=== PATIENT | female | born 1950 | race African-American/Black ===

== ENCOUNTER 2017-01-01 04:04 | Inpatient (IN) | payer MEDICARE ==
[~2017-01-01] VITALS: Ht 170.2 cm; Wt 79.6 kg
[2017-01-01] VITALS (12 sets, daily range): BP systolic 108–179; BP diastolic 56–93; PULSE 61–106; RESP 18–41; TEMP 98.3–99.2; O2SAT 96–100
[2017-01-01] MEDS ORDERED: RESP: ALBUTEROL 2.5 MG/IPRATROPIUM 0.5 MG NEB (SCH) ONE (04:12)
[2017-01-01 04:30] LABS: BLOOD GAS BASE EXCESS -0.8 mmol/L (-2-2); BLOOD GAS CARBOXYHEMOGLOBIN 2.8 % (0-4); BLOOD GAS HCO3 23 mmol/L (22-26); BLOOD GAS METHEMOGLOBIN 0.6 % (0-2); BLOOD GAS O2 HGB SATURATION 91 % (90-100); BLOOD GAS OXYGEN CONTENT 16.4 Vol % (12.0-20.0); BLOOD GAS PCO2 38 mmHg (38-42); BLOOD GAS PO2 73 mmHG (61-120); BLOOD GAS TOTAL HGB 12.8 G/DL (12.0-16.0); CRITICAL VALUE NO; TEMP CORR TO 98.6
[2017-01-01] MEDS ORDERED: SODIUM CHLORIDE 0.9% FLUSH 10 ML FLUSH IVF PRN (04:30)
[2017-01-01] MEDS ORDERED: RESP: ALBUTEROL 2.5 MG/IPRATROPIUM 0.5 MG NEB (SCH) INH ONE (04:30)
[2017-01-01 04:31] LABS: DRAW SITE LT RADIAL; FIO2 100 %; NUMBER OF ARTERIAL PUNCTURES 2; OXYGEN DEVICE NPPV; STAT YES; ULNAR PULSE PRESENT; VENT SETTINGS IPAP14/EPAP 5
[2017-01-01 04:37] LABS: AUTOMATED NEUTROPHIL # 17.2 TH/MM3 (1.8-7.7); BASOPHIL # 0.1 TH/MM3 (0-0.2); BASOPHIL % 0.3 % (0.0-2.0); EOSINOPHIL # 0.1 TH/MM3 (0-0.4); EOSINOPHIL % 0.3 % (0.0-4.0); HEMATOCRIT 39.5 % (35.0-46.0); HEMO FLAGS DIFF FINAL; LYMPHOCYTE # 1.4 TH/MM3 (1.0-4.8); MEAN CELL VOLUME 91.4 FL (80.0-100.0); MEAN CORPUSCULAR HEMOGLOBIN 29.6 PG (27.0-34.0); MEAN CORPUSCULAR HGB CONC 32.3 % (32.0-36.0); MONO % 7.2 % (0.0-8.0); NEUT % 85.2 % (16.0-70.0); PLATELET COUNT 123 TH/MM3 (150-450); RED BLOOD COUNT 4.33 MIL/MM3 (4.00-5.30); RED CELL DISTRIBUTION WIDTH 16.4 % (11.6-17.2); WHITE BLOOD COUNT 20.2 TH/MM3 (4.0-11.0)
[2017-01-01] MEDS ORDERED: FURO1TAB60 PO (04:49)
[2017-01-01] MEDS ORDERED: APIX5TAB PO ×2 (04:49→06:59)
[2017-01-01] MEDS ORDERED: NEUR600T PO (04:49)
[2017-01-01] MEDS ORDERED: TRAZ100T6 PO (04:49)
[2017-01-01] MEDS ORDERED: HYDR-3801 PO (04:49)
[2017-01-01] MEDS ORDERED: ROSU10 PO (04:49)
[2017-01-01] MEDS ORDERED: PROT40TA PO (04:49)
[2017-01-01] MEDS ORDERED: DILT60TA33 PO (04:49)
[2017-01-01] MEDS ORDERED: METO-488 PO (04:49)
[2017-01-01 04:50] LABS: APTT (PATIENT) 26.4 SEC (24.3-30.1); PROTHROMBIN TIME - PATIENT 10.7 SEC (9.8-11.6)
[2017-01-01] MEDS ORDERED: NITR1SUB3 SL (04:55)
[2017-01-01] MEDS ORDERED: ZANA4CAP PO (04:55)
[2017-01-01] MEDS ORDERED: POTA-163 PO (04:55)
[2017-01-01 04:57] LABS: CREATINE KINASE 116 U/L (26-192)
--- NOTE | 2017-01-01 04:58 | RADRPT ---
EXAM DATE/TIME: 01/01/2017 04:25 [facility] COMPARISON: No previous studies available for comparison. INDICATIONS : Short of breath. MEDICAL HISTORY : Congestive heart failure. Chronic obstructive pulmonary disease. Hypertension. SURGICAL HISTORY : CABG. Pacemaker. ENCOUNTER: Initial ACUITY: 1 day PAIN SCORE: 0/10 LOCATION: chest FINDINGS: A single view of the chest demonstrates the lungs to be symmetrically aerated with bibasilar airspace disease. Heart size is normal. Findings of prior aortic and mitral valve prostheses. Intact median s ternotomy wires. Left subclavian bipolar pacer is radiographically intact. Right subclavian Infuse-a- Port catheter with the tip projecting over the central venous system the central venous system. CONCLUSION: 1. Bibasilar airspace disease. No associated effusions. 2. Valvular prostheses. 3. Right subclavian Uibrue-p-Qgyg catheter with the tip projecting over the central venous system. Le ft subclavian bipolar pacer is radiographically intact. Jose Ruff MD on January 01, 2017 at 4:52 Board Certified Radiologist. This report was verified electronically.
[2017-01-01 04:59] LABS: ANION GAP 7 MEQ/L (5-15); BICARBONATE 26.6 MEQ/L (21.0-32.0); BLOOD UREA NITROGEN 12 MG/DL (7-18); CHLORIDE 107 MEQ/L (98-107); GLOMERULAR FILTRATION RATE 50 ML/MIN (>89); POTASSIUM 3.8 MEQ/L (3.5-5.1); SODIUM (NA) 141 MEQ/L (136-145)
[2017-01-01 05:09] LABS: CKMB 0.6 NG/ML (0.5-3.6)
[2017-01-01] MEDS ORDERED: VANCOMYCIN INJ 1,000 MG in SODIUM CHLOR 0.9% 250 ML INJ 250 ML IV ONE (05:45)
[2017-01-01] MEDS ORDERED: LEVOFLOXACIN 750 MG PREMIX INJ 150 ML IV ONE (05:45)
[2017-01-01] MEDS ORDERED: CEFEPIME INJ 1,000 MG in SODIUM CHLORIDE 0.9% INJ 100 ML IV ONE (05:45)
--- NOTE | 2017-01-01 06:03 | PD ---
HPI Chief Complaint: Respiratory Distress Time Seen by Provider: 04:16 Travel History International Travel<30 days: No Contact w/Intl Traveler<30days: No Traveled to known affect area: No History of Present Illness HPI Patient is a 66 year old female who comes in complaining of shortness of breath. She has history of COPD and CHF. She woke up from sleep, suddenly short of breath. EMS states when they arrived, her oxygen saturation was in the 50s. She was placed on CPAP with improvement of her oxygen saturation to 93 %. She says that she has been feeling short of breath for the past day and has been using her inhalers at home without much relief. She has been coughing, but has not had any fever. She denies any chest pain. She says she receives IgG infusions for an immune disorder. PFSH Past Medical History Autoimmune Disease: Yes Blood Disorders: Yes (HEPERIN INDUCED THROMBOCYTOPENIA) Cardiovascular Problems: Yes (HTN, CHF) Congestive Heart Failure: Yes COPD: Yes Fibromyalgia: Yes Hypertension: Yes Immune Disorder: Yes Neurologic: Yes (PERIPHERIAL NERVE DAMAGE) Respiratory: Yes (COPD) Myocardial Infarction: Yes (X3) Tetanus Vaccination: < 5 Years Influenza Vaccination: No ?: Not Menopausal: Yes : 5 Para: 1 Miscarriage: 4 Tubal Ligation: Yes Past Surgical History Oral Surgery: Yes (ADENOIDS) Tonsillectomy: Yes Social History Alcohol Use: No Tobacco Use: Yes (5 A DAY) Substance Use: No Allergies-Medications (Allergen,Severity, Reaction): Coded Allergies: Codeine (Verified Allergy, Unknown, 01/01/17) Heparin (Verified Allergy, Unknown, 01/01/17) Morphine (Verified Allergy, Unknown, 01/01/17) Penicillin (Verified Allergy, Unknown, 01/01/17) Reported Meds & Prescriptions Reported Meds & Active Scripts Active Reported Eliquis (Apixaban) 5 Mg Tab 5 Mg PO BID Singulair (Montelukast Sodium) 10 Mg Tab 10 Mg PO HS Nitroglycerin SL (Nitroglycerin) 0.4 Mg Subl 0.4 Mg SL DIRECTED PRN ONE TABLET UNDER THE TONGUE NEEDED FOR CHEST PAIN, MAY REPEAT EVERY FIVE MINUTES FOR A TOTAL OF 3 DOSES OR CALL 911 IF NO RELIEF Potassium Chloride ER (Potassium Chloride) 20 Meq Tab 20 Meq PO DAILY Zanaflex (Tizanidine HCl) 4 Mg Cap 4 Mg PO TID Neurontin (Gabapentin) 600 Mg Tab 600 Mg PO TID Crestor (Rosuvastatin Calcium) 10 Mg Tab 10 Mg PO DAILY Trazodone (Trazodone HCl) 100 Mg Tablet 100 Mg PO HS Eliquis (Apixaban) 5 Mg Tab 5 Mg PO BID Protonix (Pantoprazole Sodium) 40 Mg Tab 40 Mg PO BID Metoprolol Succinate/HCTZ 50-12.5 ER 1 Tab Tab 1 Tab PO DAILY Hydralazine (Hydralazine HCl) 100 Mg Tab 100 Mg PO BID Take with meals Cardizem (Diltiazem HCl) 60 Mg Tab 60 Mg PO TID Lasix (Furosemide) 40 Mg Tab 40 Mg PO BID Review of Systems Except as stated in HPI: all other systems reviewed are Neg General / Constitutional: No: Fever, Chills HENT: No: Headaches, Lightheadedness Cardiovascular: No: Chest Pain or Discomfort Respiratory: Positive: Shortness of Breath Gastrointestinal: No: Nausea, Vomiting Musculoskeletal: No: Edema Skin: No Rash, No Change in Pigmentation Neurologic: No: Weakness, Dizziness Physical Exam Narrative GENERAL: Awake and alert, in moderate respiratory distress. SKIN: Focused skin assessment warm/dry. HEAD: Atraumatic. Normocephalic. EYES: Pupils equal and round. No scleral icterus. ENT: Mucous membranes pink and moist. NECK: Trachea midline. No JVD. CARDIOVASCULAR: Regular rate and rhythm. No murmur appreciated. RESPIRATORY: Wheezing, worse on the left. Tachypnea. Breath sounds equal bilaterally. GASTROINTESTINAL: Abdomen soft, non-tender, nondistended. MUSCULOSKELETAL: No obvious deformities. No clubbing. No cyanosis. No edema. NEUROLOGICAL: Awake and alert. No obvious cranial nerve deficits. Motor grossly within normal limits. Normal speech. PSYCHIATRIC: Appropriate mood and affect; insight and judgment normal. Data Data Last Documented VS Vital Signs Date Time Temp Pulse Resp B/P Pulse Ox O2 Delivery O2 Flow Rate FiO2 01/01/17 05:31 69 18 113/58 96 BiPAP 50 01/01/17 04:07 98.8 Orders Albuterol-Ipratropium Neb (Duoneb Neb) (01/01/17 04:12) Complete Blood Count With Diff (01/01/17 04:16) Basic Metabolic Panel (Bmp) (01/01/17 04:16) B-Type Natriuretic Peptide (01/01/17 04:16) Act Partial Throm Time (Ptt) (01/01/17 04:16) Prothrombin Time / Inr (Pt) (01/01/17 04:16) Ckmb (Isoenzyme) Profile (01/01/17 04:16) Troponin I (01/01/17 04:16) Arterial Blood Gas (Abg) (01/01/17 04:16) Iv Access Insert/Monitor (01/01/17 04:16) Ecg Monitoring (01/01/17 04:16) Oximetry (01/01/17 04:16) Oxygen Administration (01/01/17 04:16) Chest, Single Ap (01/01/17 04:16) Sodium Chloride 0.9% Flush (Ns Flush) (01/01/17 04:30) Albuterol-Ipratropium Neb (Duoneb Neb) (01/01/17 04:30) Resp Bipap / Cpap Non Invas Vt (01/01/17 04:16) CKMB (01/01/17 04:21) CKMB% (01/01/17 04:21) Cefepime Inj (Maxipime Inj) (01/01/17 05:45) Vancomycin Inj (Vancomycin Inj) (01/01/17 05:45) Levofloxacin 750 Mg Premix Inj (Levaquin (01/01/17 05:45) Admit Order (Ed Use Only) (01/01/17 ) Labs Laboratory Tests Test 01/01/17 01/01/17 04:15 04:21 Blood Gas Puncture Site LT RADIAL Blood Gas Patient Temperature 98.6 Blood Gas HCO3 23 mmol/L Blood Gas Base Excess -0.8 mmol/L Blood Gas Oxygen Saturation 91 % Arterial Blood pH 7.41 Arterial Blood Partial 38 mmHg Pressure CO2 Arterial Blood Partial 73 mmHG Pressure O2 Arterial Blood Oxygen Content 16.4 Vol % Arterial Blood 2.8 % Carboxyhemoglobin Arterial Blood Methemoglobin 0.6 % Blood Gas Hemoglobin 12.8 G/DL Oxygen Delivery Device NPPV Blood Gas Ventilator Setting IPAP14/EPAP 5 Blood Gas Inspired Oxygen 100 % White Blood Count 20.2 TH/MM3 Red Blood Count 4.33 MIL/MM3 Hemoglobin 12.8 GM/DL Hematocrit 39.5 % Mean Corpuscular Volume 91.4 FL Mean Corpuscular Hemoglobin 29.6 PG Mean Corpuscular Hemoglobin 32.3 % Concent Red Cell Distribution Width 16.4 % Platelet Count 123 TH/MM3 Mean Platelet Volume 9.4 FL Neutrophils (%) (Auto) 85.2 % Lymphocytes (%) (Auto) 7.0 % Monocytes (%) (Auto) 7.2 % Eosinophils (%) (Auto) 0.3 % Basophils (%) (Auto) 0.3 % Neutrophils # (Auto) 17.2 TH/MM3 Lymphocytes # (Auto) 1.4 TH/MM3 Monocytes # (Auto) 1.4 TH/MM3 Eosinophils # (Auto) 0.1 TH/MM3 Basophils # (Auto) 0.1 TH/MM3 CBC Comment DIFF FINAL Differential Comment Prothrombin Time 10.7 SEC Prothromb Time International 1.0 RATIO Ratio Activated Partial 26.4 SEC Thromboplast Time Sodium Level 141 MEQ/L Potassium Level 3.8 MEQ/L Chloride Level 107 MEQ/L Carbon Dioxide Level 26.6 MEQ/L Anion Gap 7 MEQ/L Blood Urea Nitrogen 12 MG/DL Creatinine 1.10 MG/DL Estimat Glomerular Filtration 50 ML/MIN Rate Random Glucose 137 MG/DL Calcium Level 8.8 MG/DL Total Creatine Kinase 116 U/L Creatine Kinase MB 0.6 NG/ML Troponin I 0.04 NG/ML B-Type Natriuretic Peptide 235 PG/ML [facility] Medical Decision Making Medical Screen Exam Complete: Yes Emergency Medical Condition: Yes Interpretation(s) ECG shows sinus tachycardia at 103, no ST elevation or depression, normal intervals. Differential Diagnosis COPD exacerbation versus CHF exacerbation versus pneumonia versus ACS Narrative Course Patient is a 66-year-old female comes in short of breath. Exam shows patient is tachypnea, in moderate respiratory distress. She is continued on BiPAP. Placed on laborer aquatic life. Patient given 1 DuoNeb. She seems to be improving on BiPAP and with the DuoNeb. Labs sent show an elevated white blood cell count of 20. Troponin is 0.04. Chest x-ray is concerning for bibasilar airspace disease. She is covered with antibiotics. Patient is resting comfortably on BiPAP. She'll be admitted for further management. Diagnosis Primary Impression: COPD (chronic obstructive pulmonary disease) Qualified Code: J44.1 - Chronic obstructive pulmonary disease with acute exacerbation Additional Impressions: Pneumonia Qualified Code: J18.9 - Pneumonia of both lower lobes due to infectious organism Hypoxia Admitting Information Admitting Physician Requests: Admit Condition: Stable Geetha Freeman MD Jan 01, 2017 06:03
[2017-01-01] MEDS ORDERED: NALOXONE HCL 0.4 MG/ML AMP IV PRN (06:15)
[2017-01-01] MEDS ORDERED: SODIUM CHLORIDE 0.9% FLUSH 10 ML FLUSH IV FLUSH PRN (06:15)
--- NOTE | 2017-01-01 06:37 | HHI.HP ---
[facility]Staff Admission Diagnosis COPD, pneumonia, hypoxia Diagnoses: Chief Complaint: Shortness of breath Travel History International Travel<30 Days: No Contact w/Intl Traveler <30 Da: No Traveled to Known Affected Are: No History of Present Illness History from patient, ER physician communication, and review of medical records. Patient reported that she came to the hospital because she just was not able to breathe. She stated her shortness of breath started yesterday slowly but today she just was not able to keep it under control.. She stated that she has been having cough for the past few days. Yellow sputum. Reports of subjective fevers and cold sweats. He also reports of nausea before she came here. However no vomiting. Denies any chest pains or tightness associated with this. Denies any blood in her stool or in her urine. Denies diarrhea. Denies any burning urination or pain on urination. Patient also reports off right lower extremity swelling and pain. She came to [facility] from [place] a few days ago by car. It was 10 hours, right. Reports she did take breaks in between though. She is on Eliquis at home. According to ER communication, patient was so severely short of breath upon initial arrival. EMS had placed her on CPAP on route. They also had given her Lasix 80 mg IV. Patient has history of cardiomyopathy, COPD on home oxygen, sleep apnea. 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 Was told she had multiple secretions Past Surgical History mediport placement ppm aortic valve replacement mitral valve repair coronary angiograms right rotator cuff sx tubal ligation tonsillectomy adenoidectomy Reported Medications reports went through meds with nurse Allergies: Coded Allergies: Codeine (Verified Allergy, Unknown, 01/01/17) Heparin (Verified Allergy, Unknown, 01/01/17) Morphine (Verified Allergy, Unknown, 01/01/17) Penicillin (Verified Allergy, Unknown, 01/01/17) Family History brother 'dropped ' with heart attack at 55yo another brother last december with cirrhosis of liver complications both mom and dad had multiple cardia issues pt herself had first heart attack at age 37 Social History still smokes about 5 cigarettes a day denies etoh abuse or drug abuse Physical Exam Vital Signs Vital Signs Date Time Temp Pulse Resp B/P Pulse Ox O2 Delivery O2 Flow Rate FiO2 01/01/17 05:31 69 18 113/58 96 BiPAP 50 01/01/17 04:50 96 BiPAP 50 01/01/17 04:44 98 50 01/01/17 04:26 39 98 CPAP 100 01/01/17 04:24 98 BiPAP 100 01/01/17 04:07 98.8 106 41 179/93 99 01/01/17 04:05 96 100 01/01/17 04:05 96 100 Physical Exam GENERAL: This is a well-nourished, well-developed patient, in no apparent distress. SKIN: No rashes, ecchymoses or lesions. Cool and dry. HEAD: Atraumatic. Normocephalic. No temporal or scalp tenderness. EYES: No scleral icterus. No injection or drainage. ENT: Nose without bleeding, purulent drainage or septal hematoma. Airway patent. NECK: Trachea midline. No JVD CARDIOVASCULAR: Regular rate and rhythm without gallops, or rubs. Systolic murmur at aortic area and precordium throughout. RESPIRATORY: Bilateral basilar crepitations. Limited exam partly due to BiPAP sounds. GASTROINTESTINAL: Abdomen soft, non-tender, nondistended. No hepato-splenomegaly , or palpable masses. No guarding. MUSCULOSKELETAL: Extremities without clubbing, cyanosis, or edema. Right lower extremity tenderness of the calf. Cannot appreciate asymmetry although patient complains of more swelling on the right lower extremity. NEUROLOGICAL: Awake and alert. Motor and sensory grossly within normal limits. Normal speech. Laboratory Laboratory Tests Test 01/01/17 01/01/17 04:15 04:21 Blood Gas Puncture Site LT RADIAL Blood Gas Patient Temperature 98.6 Blood Gas HCO3 23 Blood Gas Base Excess -0.8 Blood Gas Oxygen Saturation 91 Arterial Blood pH 7.41 Arterial Blood Partial 38 Pressure CO2 Arterial Blood Partial 73 Pressure O2 Arterial Blood Oxygen Content 16.4 Arterial Blood 2.8 Carboxyhemoglobin Arterial Blood Methemoglobin 0.6 Blood Gas Hemoglobin 12.8 Oxygen Delivery Device NPPV Blood Gas Ventilator Setting IPAP14/EPAP 5 Blood Gas Inspired Oxygen 100 White Blood Count 20.2 Red Blood Count 4.33 Hemoglobin 12.8 Hematocrit 39.5 Mean Corpuscular Volume 91.4 Mean Corpuscular Hemoglobin 29.6 Mean Corpuscular Hemoglobin 32.3 Concent Red Cell Distribution Width 16.4 Platelet Count 123 Mean Platelet Volume 9.4 Neutrophils (%) (Auto) 85.2 Lymphocytes (%) (Auto) 7.0 Monocytes (%) (Auto) 7.2 Eosinophils (%) (Auto) 0.3 Basophils (%) (Auto) 0.3 Neutrophils # (Auto) 17.2 Lymphocytes # (Auto) 1.4 Monocytes # (Auto) 1.4 Eosinophils # (Auto) 0.1 Basophils # (Auto) 0.1 CBC Comment DIFF FINAL Differential Comment Prothrombin Time 10.7 Prothromb Time International 1.0 Ratio Activated Partial 26.4 Thromboplast Time Sodium Level 141 Potassium Level 3.8 Chloride Level 107 Carbon Dioxide Level 26.6 Anion Gap 7 Blood Urea Nitrogen 12 Creatinine 1.10 Estimat Glomerular Filtration 50 Rate Random Glucose 137 Calcium Level 8.8 Total Creatine Kinase 116 Creatine Kinase MB 0.6 Troponin I 0.04 B-Type Natriuretic Peptide 235 Result Diagram: 01/01/17 0421 01/01/17 042 Imaging Last 48 hours Impressions Chest X-Ray 01/01/17 0416 Signed Impressions: Service Date/Time: Sunday, January 01, 2017 04:25 - CONCLUSION: 1. Bibasilar airspace disease. No associated effusions. 2. Valvular prostheses. 3. Right subclavian Evhkml-a-Hjyi catheter with the tip projecting over the central venous system. Left subclavian bipolar pacer is radiographically intact. Jose Ruff MD Assessment and Plan Assessment and Plan Impression: Pneumonia Acute respiratory failurehypoxemicmultifactorial. Pneumonia, suspect CHF exacerbation as patient improves with Lasix 80 mg IV which was given on the field. 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 Was told she had multiple secretions Plan: Continue BiPAP for now. Patient was given vancomycin, cefepime, levofloxacin in ER. For now, I would continue cefepime 2 g IV every 12 hours. Continue Lasix at 40 mg IV every 12 hours. Patient received 80 mg Lasix IV on the field per report. Will monitor input/ output. Patient reports of improvement after diuresis. Will obtain ultrasound of the lower extremities to rule out DVT given that patient has recent 10 hour car ride from [place] to here. Continue home medications. DVT prophylaxison Eliquis GI prophyalxis on pantoprazole Discussed Condition With patient, ER MD, nursing staff Physician Certification 2 Midnight Certification Type: Admission for Inpatient Services Order for Inpatient Services The services are ordered in accordance with Medicare regulations or non- Medicare payer requirements, as applicable. In the case of services not specified as inpatient-only, they are appropriately provided as inpatient services in accordance with the 2-midnight benchmark. Estimated LOS (days): 2 days is the estimated time the patient will need to remain in the hospital, assuming treatment plan goals are met and no additional complications. Post-Hospital Plan: Home Balwinder Diamond MD Jan 01, 2017 06:37
[2017-01-01] MEDS ORDERED: MONT10TA2 PO (06:59)
[2017-01-01] MEDS: traZODone HCL 100 MG TAB PO SCH ×2 (07:00→20:36)
[2017-01-01] MEDS ORDERED: RESP: ALBUTEROL 2.5 MG/IPRATROPIUM 0.5 MG NEB (PRN) NEB (07:15)
[2017-01-01] MEDS: RESP: ALBUTEROL 2.5 MG/IPRATROPIUM 0.5 MG NEB (SCH) NEB ×3 (08:56→20:24)
--- NOTE | 2017-01-01 08:59 | RADRPT ---
EXAM DATE/TIME: 01/01/2017 07:29 [facility] COMPARISON: No previous studies available for comparison. INDICATIONS : Shortness of breath. MEDICAL HISTORY : Myocardial infarction. Hypertension. Congestive heart failure. COPD. Fibromyalgia. SURGICAL HISTORY : Pacemaker.Tonsillectomy. Tubal ligation.Left elbow surgery. ENCOUNTER: Initial ACUITY: 2 day PAIN SCORE: 0/10 LOCATION: Bilateral leg. TECHNIQUE: Venous ultrasound of the left and right leg was performed from the inguinal ligament to the proximal calf. Real-time, color Doppler and spectral tracing, compression and augmentation techniques were us ed. FINDINGS: RIGHT LEG: There is normal compressibility of the deep venous system from the inguinal region to the proximal ca lf. No echogenic clot is seen in the lumen of the common femoral, femoral, popliteal, and posterior tibial veins. There is a normal response of the venous system to proximal and distal augmentation an d respiration. LEFT LEG: There is normal compressibility of the deep venous system from the inguinal region to the proximal ca lf. No echogenic clot is seen in the lumen of the common femoral, femoral, popliteal, and posterior tibial veins. There is a normal response of the venous system to proximal and distal augmentation an d respiration. CONCLUSION: No evidence of DVT. Eriberto Mendiola MD on January 01, 2017 at 8:57 Board Certified Radiologist. This report was verified electronically.
[2017-01-01] MEDS ORDERED: HCTZ PO SCH (09:00)
[2017-01-01] MEDS ORDERED: METOPROLOL SUCCINATE PO SCH (09:00)
[2017-01-01] MEDS: POTASSIUM CHLORIDE 20 MEQ CONTROLLED RELEASE TAB PO SCH (09:00)
[2017-01-01] MEDS: ATORVASTATIN 20 MG TAB PO SCH (09:00)
[2017-01-01] MEDS ORDERED: CHLORHEXIDINE GLUCONATE 2 % 1 PACK (2 CLOTHS)(extra cloths) TOPICAL PRN (10:30)
[2017-01-01] MEDS ORDERED: ACETAMINOPHEN 325 MG TAB PO PRN (11:00)
[2017-01-01] MEDS: GABAPENTIN 300 MG CAP PO SCH ×3 (11:44→18:34)
[2017-01-01] MEDS: hydrALAZINE HCL 100 MG TAB PO SCH ×2 (11:44→20:28)
[2017-01-01] MEDS: HYDROCHLOROTHIAZIDE 12.5 MG CAP PO SCH (11:44)
[2017-01-01] MEDS: SODIUM CHLORIDE 0.9% FLUSH 10 ML FLUSH IV FLUSH SCH ×2 (11:45→20:28)
[2017-01-01] MEDS: METOPROLOL SUCCINATE 50 MG EXTENDED RELEASE TAB PO SCH (11:46)
[2017-01-01] MEDS: PANTOPRAZOLE SOD 40 MG DELAYED RELEASE TAB PO SCH ×2 (11:46→20:28)
[2017-01-01] MEDS: FUROSEMIDE 40 MG/4 ML VIAL IV PUSH SCH ×2 (11:46→18:37)
[2017-01-01] MEDS: DILTIAZEM HCL 60 MG TAB PO SCH ×3 (11:46→18:34)
[2017-01-01] MEDS: APIXABAN 5 MG TABLET PO SCH ×2 (11:48→20:28)
--- NOTE | 2017-01-01 13:23 | EKG ---
Date Performed: 01/01/2017 Time Performed: 04:11:55 PTAGE: 66 years EKG: SINUS TACHYCARDIA NONSPECIFIC ST & T-WAVE ABNORMALITY ABNORMAL ECG NO PREVIOUS TRACING DOCTOR: Tien Hook Interpretating Date/Time 01/01/2017 13:22:10
--- NOTE | 2017-01-01 13:36 | HHI.PR ---
Addendum to Inpatient Note Addendum Reason: Additional Documentation Additional Information 01/01/17 -Patient seen and examined; she currently denies any chest pain or shortness of breath. She was treated with Tylenol 1 for headache with significant improvement of symptom. Continue current treatment. Domenic Wise MD Jan 01, 2017 13:36
[2017-01-01] MEDS: CEFEPIME INJ 2,000 MG in SODIUM CHLORIDE 0.9% INJ 100 ML IV SCH (18:37)
[2017-01-01] MEDS ORDERED: MONTELUKAST SODIUM 10 MG TAB PO SCH (21:00)
[2017-01-02] VITALS (9 sets, daily range): BP systolic 113–134; BP diastolic 57–62; PULSE 70–80; RESP 20–32; TEMP 98.9–99.5; O2SAT 94–100
[2017-01-02] MEDS: RESP: ALBUTEROL 2.5 MG/IPRATROPIUM 0.5 MG NEB (SCH) NEB ×2 (03:52→08:03)
[2017-01-02] MEDS ORDERED: CHLORHEXIDINE GLUCONATE 2 % 1 PACK (2 CLOTHS)(taper/protocol) TOPICAL SCH (04:00)
[2017-01-02 04:27] LABS: AUTOMATED NEUTROPHIL # 6.3 TH/MM3 (1.8-7.7); BASOPHIL # 0.1 TH/MM3 (0-0.2); BASOPHIL % 0.7 % (0.0-2.0); EOSINOPHIL % 0.6 % (0.0-4.0); HEMATOCRIT 32.6 % (35.0-46.0); HEMO FLAGS DIFF FINAL; LYMPH % 10.1 % (9.0-44.0); LYMPHOCYTE # 0.8 TH/MM3 (1.0-4.8); MEAN CELL VOLUME 90.1 FL (80.0-100.0); MEAN CORPUSCULAR HEMOGLOBIN 30.7 PG (27.0-34.0); MEAN CORPUSCULAR HGB CONC 34.1 % (32.0-36.0); MONO % 12.5 % (0.0-8.0); NEUT % 76.1 % (16.0-70.0); PLATELET COUNT 106 TH/MM3 (150-450); RED BLOOD COUNT 3.62 MIL/MM3 (4.00-5.30); RED CELL DISTRIBUTION WIDTH 16.6 % (11.6-17.2); WHITE BLOOD COUNT 8.3 TH/MM3 (4.0-11.0)
[2017-01-02] MEDS: CEFEPIME INJ 2,000 MG in SODIUM CHLORIDE 0.9% INJ 100 ML IV SCH (04:38)
[2017-01-02 04:43] LABS: BICARBONATE 28.3 MEQ/L (21.0-32.0); POTASSIUM 3.2 MEQ/L (3.5-5.1)
[2017-01-02] MEDS ORDERED: POTASSIUM CHLORIDE 10 MEQ CONTROLLED RELEASE TAB PO ONE ×2 (05:15→08:45)
[2017-01-02] MEDS: SODIUM CHLORIDE 0.9% FLUSH 10 ML FLUSH IV FLUSH SCH (08:30)
[2017-01-02] MEDS: APIXABAN 5 MG TABLET PO SCH (08:31)
[2017-01-02] MEDS: FUROSEMIDE 40 MG/4 ML VIAL IV PUSH SCH (08:31)
[2017-01-02] MEDS: ATORVASTATIN 20 MG TAB PO SCH (08:31)
[2017-01-02] MEDS: DILTIAZEM HCL 60 MG TAB PO SCH (08:31)
[2017-01-02] MEDS: HYDROCHLOROTHIAZIDE 12.5 MG CAP PO SCH (08:31)
[2017-01-02] MEDS: GABAPENTIN 300 MG CAP PO SCH (08:31)
[2017-01-02] MEDS: PANTOPRAZOLE SOD 40 MG DELAYED RELEASE TAB PO SCH (08:31)
[2017-01-02] MEDS: hydrALAZINE HCL 100 MG TAB PO SCH (08:31)
[2017-01-02] MEDS: METOPROLOL SUCCINATE 50 MG EXTENDED RELEASE TAB PO SCH (08:32)
[2017-01-02] MEDS: POTASSIUM CHLORIDE 20 MEQ CONTROLLED RELEASE TAB PO SCH (08:32)
--- NOTE | 2017-01-02 08:50 | HHI.PR ---
Subjective Remarks Follow-up acute respiratory failure/acute on chronic systolic CHF exacerbation/ community bacterial pneumonia 01/02/17-patient seen and examined, reports significant improvement or shortness of breath and denies any cough, chest pain. Vitals stable this morning. Patient is looking forward being discharged Objective Vitals Vital Signs Date Time Temp Pulse Resp B/P Pulse Ox O2 Delivery O2 Flow Rate FiO2 01/02/17 08:04 98 Nasal Cannula 2.00 01/02/17 04:00 99.5 70 22 117/57 98 01/02/17 04:00 70 01/02/17 03:58 100 Nasal Cannula 2.00 01/02/17 00:00 75 01/02/17 00:00 99.0 75 27 113/59 01/01/17 20:24 97 Nasal Cannula 2.00 01/01/17 20:00 99.2 61 25 108/56 97 01/01/17 20:00 61 01/01/17 16:00 98.3 01/01/17 12:45 20 01/01/17 10:00 98.4 01/01/17 08:58 100 Nasal Cannula 3.00 I/O 01/01/17 01/01/17 01/01/17 01/02/17 01/02/17 01/02/17 07:00 15:00 23:00 07:00 15:00 23:00 Intake Total 630 ml 300 ml Output Total 300 ml 600 ml Balance 330 ml -300 ml Intake Oral 530 ml 200 ml IV Total 100 ml 100 ml Output Urine Total 300 ml 600 ml # Voids 4 # Bowel Movements 0 Result Diagram: 01/02/17 0355 01/02/17 0355 Imaging Last Impressions Chest X-Ray 01/01/17 0416 Signed Impressions: Service Date/Time: Sunday, January 01, 2017 04:25 - CONCLUSION: 1. Bibasilar airspace disease. No associated effusions. 2. Valvular prostheses. 3. Right subclavian Qyuttx-w-Ilbo catheter with the tip projecting over the central venous system. Left subclavian bipolar pacer is radiographically intact. Jose Ruff MD Lower Extremity Ultrasound 01/01/17 0000 Signed Impressions: Service Date/Time: Sunday, January 01, 2017 07:29 - CONCLUSION: No evidence of DVT. Eriberto Mendiola MD Objective Remarks GENERAL: NAD SKIN: Warm and dry. HEAD: Normocephalic. EYES: No scleral icterus. No injection or drainage. NECK: Supple, trachea midline. No JVD or lymphadenopathy. CARDIOVASCULAR: Regular rate and rhythm with II/ BRITTNEY RESPIRATORY: Breath sounds equal bilaterally. No accessory muscle use. GASTROINTESTINAL: Abdomen soft, non-tender, nondistended. MUSCULOSKELETAL: No cyanosis, or edema. BACK: Nontender without obvious deformity. No CVA tenderness. A/P Problem List: (1) Acute respiratory failure with hypoxemia ICD Code: J96.01 Status: Acute (2) Acute on chronic systolic (congestive) heart failure ICD Code: I50.23 Status: Acute (3) Community acquired bacterial pneumonia ICD Code: J15.9 Status: Acute Assessment and Plan 66-year-old female with Acute respiratory failure with hypoxemia Resolved Continue with DuoNeb when necessary Treat pneumonia as well as acute systolic CHF BiPAP when necessary Acute on chronic systolic heart failure Currently on IV Lasix 40 mg every 12 hours, will switch to by mouth Continue with beta chuy Community-acquired bacteria pneumonia Currently on cefepime IV, will switch to by mouth Levaquin History of aortic as well as mitral valves replacement Continue with Eliquis Hypokalemia Give potassium 60 mEq 1 now History of hypertension, hypothyroidism, other chronic medical conditions Continue outpatient medications DVT prophylaxison Eliquis GI prophyalxis on pantoprazole Discharge Planning Patient's condition tremendously improved since admission, therefore she'll be discharged home Discharge patient to home Condition on discharge: Improved Healthy Diet as tolerated Ad Karla activity Rx written: Levaquin 500 mg by mouth daily Follow-up with primary care physician in one week Domenic Wise MD Jan 02, 2017 08:50
[2017-01-02] MEDS ORDERED: LEVA500T20 PO (08:52)
[2017-01-02] MEDS ORDERED: GABAPENTIN 300 MG CAP PO SCH (21:00)
== END 2017-01-02 11:35 | disposition home or self-care (01) | DRG 291 ==
LOC: NEPE 04:04 → NEDA 06:05 → HIMN 09:25
PROVIDERS: ADMIT Hospitalist; ATTEND Hospitalist
PROC: 5A09357 Assistance with Respiratory Ventilation, Less than 24 Consecutive Hours, Continuous Positive Airway Pressure (ICD-10-PCS; principal; 2017-01-01)
DX: I11.0 Hypertensive heart disease with heart failure (principal); I50.23 Acute on chronic systolic (congestive) heart failure; J15.9 Unspecified bacterial pneumonia; J96.01 Acute respiratory failure with hypoxia; D81.9 Combined immunodeficiency, unspecified; I42.9 Cardiomyopathy, unspecified; Z99.81 Dependence on supplemental oxygen; I48.91 Unspecified atrial fibrillation; J44.9 Chronic obstructive pulmonary disease, unspecified; F17.210 Nicotine dependence, cigarettes, uncomplicated; E87.6 Hypokalemia; E03.9 Hypothyroidism, unspecified; R51 Headache; I25.2 Old myocardial infarction; M79.7 Fibromyalgia; G47.30 Sleep apnea, unspecified; Z95.2 Presence of prosthetic heart valve; I25.10 Atherosclerotic heart disease of native coronary artery without angina pectoris; K21.9 Gastro-esophageal reflux disease without esophagitis
CPT/HCPCS: 36600; 71010; 80048; 82550; 82552; 82805; 83880; 84484; 85025; 85610; 85730; 87641; 93005; 93970; 94002; 94640; 94664; J0692; J1940; J1956; J3370; J7050